=== PATIENT | male | born 1945 | race Two or more races ===

== ENCOUNTER 2021-05-11 19:47 | Inpatient (IN) | payer MEDICARE, OTHER ==
[~2021-05-11] VITALS: Ht 182.9 cm; Wt 62.1 kg
[2021-05-11 21:55] VITALS: BP 117/67
[2021-05-11] MEDS ORDERED: BLOOD SUGAR DIAGNOSTIC 1 EACH STRIP IN ONE (22:00)
[2021-05-11] MEDS ORDERED: ZOLPIDEM TARTRATE 5 MG TABLET PO PRN (22:00)
[2021-05-11] MEDS ORDERED: MAG HYDROX/AL HYDROX/SIMETH 30 ML UDC PO PRN (22:00)
[2021-05-11] MEDS ORDERED: ACETAMINOPHEN 325 MG TABLET PO PRN (22:00)
[2021-05-11] MEDS ORDERED: MAGNESIUM HYDROXIDE 30 ML UDC PO PRN (22:00)
--- NOTE | 2021-05-11 22:40 | NUR ---
RN NOTE PATIENT'S BLOOD SUGAR LEVEL IS 93 MG/DL, ORANGE JUICE OFFERED & PATIENT TOLERATED WELL. WILL CONTINUE TO MONITOR.
--- NOTE | 2021-05-11 23:30 | NUR ---
RN NOTE PATIENT IS SLEEPING COMFORTABLY, NO BEHAVIOR EPISODE NOTED UPON AND AFTER ADMISSION. CALM AND COOPERATIVE, ABLE TO FOLLOW SIMPLE DIRECTIONS DUE TO CONFUSION. BED ALARM ON. WILL CONTINUE TO MONITOR FOR SAFETY & BEHAVIOR.
[2021-05-12] MEDS ORDERED: ESCI10TA PO (00:20)
--- NOTE | 2021-05-12 00:40 | NUR ---
GPS STAFF APPRAISER NOTE PATIENT ARRIVED ON THIS UNIT AT 2135 VIA STRETCHER WITH 2 EMT'S FROM [facility] DIRECT ADMIT. PATIENT ADMITTED ON A 5150 HOLD FOR GD. PER 5150 HOLD PATIENT CAME TO THE ER STATING THAT HIS 'SISTER HAD OVERDOSED IN THE CARE." WHEN EMT RAN TO THE CAR, IT WAS FOUND THAT HE WAS HALLUCINATING. PATIENT CONTINUED TO STATED THAT HE OVERDOSED, THAT WAS FOUND NOT TRUE. PATIENT APPEARS TO BE ACTIVELY HALLUCINATING. MR. PAINTER STATED THAT HE DOES NOT TAKE HIS MEDICINES BECAUSE THE " POLICE ARE AFTER HIM." PATIENT IS NOT ABLE TO CARE FOR HIMSELF IN THIS CURRENT STATE. DUE TO THIS PATIENT WAS PLACED ON A 5150 FOR GRAVELY DISABLED. UPON FACE TO FACE ASSESSMENT PATIENT IS A & O X 1, CONFUSED, FORGETFUL, DISHEVELED, DISORIENTED, DISORGANIZED, NEEDS FREQUENT REDIRECTIONS. CALM & COOPERATIVE UPON ADMISSION, FOLLOWS SIMPLE DIRECTIONS. PATIENT HAS NO C/O PAIN. PATIENT IS DISPLAYING NO S/S OF APPARENT DISTRESS OR SOB. PATIENT BREATHING IS UNLABORED WITH EQUAL RISE AND FALL OF THE CHEST. ON ROOM AIR. PATIENT DENIES SI/HI AT THIS TIME. 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 CONTINENT, NEEDS 1 PERSON ASSISTANCE AT ALL TIMES WITH ADL CARE. PATIENT REFUSED TO SIGNS ANY PAPER WORK, WANTS TO SLEEP, FEELS VERY TIRED. POOR HISTORIAN. PATIENT ADVISED OF HOLD AND PATIENT RIGHTS BOOKLET GIVEN. PATIENT IS UNDER THE PSYCHIATRIC CARE OF DR. VELEZ AND THE MEDICAL CARE OF SAWYER ZIMMERMAN. PATIENT BELONGINGS WERE INVENTORIED AND CHECKED FOR CONTRABAND. ALL CONTRABAND REMOVED AND STORED IN PATIENT HALLWAY LOCKER. PATIENT ADVANCED DIRECTIVES PREFERENCE, IMMUNIZATIONS QUESTIONER, NECESSARY PAPERWORK COMPLETED. SKIN ASSESSMENT DONE. UNABLE TO GIVE COVID VACCINE INFORMATION DUE TO FORGETFULNESS. PATIENT ORIENTATED TO ROOM, FLOOR, AND STAFF. PATIENT EDUCATED ON THE USE OF THE CALL DIGGS. PATIENT BED SIDE RAILS ARE UP X 2 FOR SAFETY. PATIENT BED IS LOCKED, LOW, BED ALARM ON FOR SAFETY. I WILL CONTINUE TO MONITOR THIS PATIENT Q 15 MIN WITH THE HELP OF STAFF TO MAINTAIN SAFETY.
--- NOTE | 2021-05-12 07:04 | NUR ---
RN NOTE CALLED LIYA CANDELARIA AT [phone], LEFT A VOICEMAIL ABOUT PATIENT'S ADMISSION AT [facility], GPS UNIT.
[2021-05-12 07:40] LABS: ALBUMIN 3.2 g/dL (3.4-5.0); BILIRUBIN,TOTAL 0.8 mg/dL (0.2-1.0); CALCIUM, SERUM 7.7 mg/dL (8.5-10.1); CREATININE 0.7 mg/dL (0.6-1.3); POTASSIUM 3.5 mmol/L (3.5-5.1); TOTAL PROTEIN, SERUM 5.9 g/dL (6.4-8.2)
[2021-05-12 08:00] VITALS: BP 121/70
[2021-05-12] MEDS ORDERED: CARB1TAB21 PO (08:26)
[2021-05-12] MEDS ORDERED: BUSP10TA3 PO (08:26)
[2021-05-12] MEDS ORDERED: CARB1TAB40 PO (08:27)
[2021-05-12] MEDS ORDERED: QUET25TA PO (08:27)
[2021-05-12] MEDS ORDERED: OMEP20CA15 PO (08:27)
[2021-05-12] MEDS ORDERED: ENTA200T30 PO (08:27)
[2021-05-12] MEDS ORDERED: MULT-447 PO (08:27)
[2021-05-12] MEDS ORDERED: POLY17PO4 PO (08:27)
[2021-05-12] MEDS ORDERED: DOCU250C14 PO (08:27)
[2021-05-12] MEDS: Z GUARD REMEDY 2 OZ OINT TP SCH (09:28)
--- NOTE | 2021-05-12 10:17 | NUR ---
WOUND CARE CONSULT: RECEIVED WOUND CONSULT FOR SKIN ASSESSMENT. PT NOTED TO BE AMBULATORY AND CONTINENT WITH SOME DRY ABRASIONS ON LEGS, PRESENT ON ADMISSION. WILL SEE PRN.
[2021-05-12] MEDS: ENSURE ENLIVE 237 ML LIQUID (VANILLA) PO SCH ×2 (12:26→17:26)
[2021-05-12] MEDS ORDERED: POLYETHYLENE GLYCOL 3350 17 GM POWD.PACK PO PRN (12:30)
--- NOTE | 2021-05-12 12:32 | NUR ---
RAJIV Initial Discharge Plan: Patient currently resides at home alone [address], [place] [address]. Pt would want to return back home. RAJIV will work with the MD and pt to coordinate discharge.
[2021-05-12] MEDS: CARBIDOPA/LEVODOPA 25/100 MG 1 UDTAB PO SCH ×3 (12:39→21:06)
[2021-05-12] MEDS: ENTACAPONE 200 MG TABLET PO SCH ×3 (12:39→21:06)
--- NOTE | 2021-05-12 13:25 | NUR ---
SW Contact: SW contacted person to notify ([phone]) and they stated this was the wrong number.
[2021-05-12 16:00] VITALS: BP 139/84
[2021-05-12 20:00] VITALS: BP 119/75
[2021-05-12] MEDS: QUETIAPINE FUMARATE 25 MG TABLET PO SCH (21:39)
[2021-05-12] MEDS: CARBIDOPA/LEV CR 50/200 MG 1 UDTAB.SA PO SCH (22:04)
--- NOTE | 2021-05-13 06:59 | NUR ---
RN NOTE PATIENT SLEPT WELL AT NIGHT. NO BEHAVIOR EPISODE NOTED. PATIENT CALM, COOPERATIVE & REDIRECTABLE.
[2021-05-13 08:00] VITALS: BP 117/64
[2021-05-13] MEDS: PANTOPRAZOLE 40 MG TABLET.DR PO SCH (09:10)
[2021-05-13] MEDS: ENTACAPONE 200 MG TABLET PO SCH ×4 (09:11→20:34)
[2021-05-13] MEDS: MULTIVIT W/MINERALS 1 TAB TABLET PO SCH (09:11)
[2021-05-13] MEDS: CARBIDOPA/LEVODOPA 25/100 MG 1 UDTAB PO SCH ×4 (09:11→20:38)
[2021-05-13] MEDS: ENSURE ENLIVE 237 ML LIQUID (VANILLA) PO SCH ×3 (09:19→16:32)
[2021-05-13] MEDS: Z GUARD REMEDY 2 OZ OINT TP SCH (09:29)
--- NOTE | 2021-05-13 11:34 | NUR ---
[facility]: RAJIV contacted [facility] and spoke with social services counselor (Amy, ) who reported that pt was at the ER in 2018 due to experiencing hallucinations stating that someone is murdering him and was on Buspar and Seroquel. Amy VANCE shared that she was unable to find any information but just sister Mariana ([phone], ) who lives in [place]. bench worker helper reported that neighbors help pt and are involved in pt's care.
--- NOTE | 2021-05-13 11:43 | NUR ---
RAJIV Note: SW asked if pt was able to recall his neighbors name but pt was unable to remember. He did stated that neighbors help him and he goes to his doctor appointments.
--- NOTE | 2021-05-13 11:49 | NUR ---
SW Family Contact: SW contacted pt's sister Mariana ([phone], ) and left a voicemail to contact this SW to discuss discharge/treatment plan.
--- NOTE | 2021-05-13 12:06 | NUR ---
[facility] Contact: [facility] ([phone]). SW left a message for the coordinator to contact this SW in regards to placement.
--- NOTE | 2021-05-13 13:17 | NUR ---
RAJIV Family Contact: SW spoke with patient's sister Mariana ([phone]) who stated that pt lives at home and his friends/neighbors help pt. She provided patient's friend Simona's number ([phone]).
--- NOTE | 2021-05-13 13:18 | NUR ---
Friend Contact: SW contacted pt's friend Simona ([phone]) and left a voicemail to contact this SW.
--- NOTE | 2021-05-13 13:31 | NUR ---
Friend Contact: SW received a call back from pt's friend Simona ([phone]). Simona stated that he is pt's life long friend and that she takes care of pt takes him to doctor appointments. She stated she is very involved in his care and will diamond picker pt upon discharge.
--- NOTE | 2021-05-13 14:05 | NUR ---
RAJIV Coordination of Care: Patient will follow up with ([employer] Specialist) Dr. Wellington located at [address] [address] ([phone]) on May 28 at 9:30AM and will provided and monitor patients antipsychotic medications. Floral Designer Salesperson inputted for a psych consult for the primary doctor to request. More receptionist clerk scheduled this appointment and stated pt was seeing psychiatrist Dr. Abreu but has not seen him for two years.
[2021-05-13 16:00] VITALS: BP 125/73
[2021-05-13 20:00] VITALS: BP 129/80
[2021-05-13] MEDS: CARBIDOPA/LEV CR 50/200 MG 1 UDTAB.SA PO SCH (21:46)
[2021-05-13] MEDS: QUETIAPINE FUMARATE 25 MG TABLET PO SCH (21:46)
[2021-05-14] MEDS: Z GUARD REMEDY 4 OZ OINT TP PRN (04:44)
[2021-05-14 06:50] LABS: BASOPHILS % (AUTO) 0.2 % (0.0-2.0); EOSINOPHILS % (AUTO) 2.8 % (0.0-6.0); HEMATOCRIT 38 % (39-51); HEMOGLOBIN 12.7 g/dL (13.5-17.5); LYMPHOCYTES # (AUTO) 1.1 K/uL (0.8-4.8); LYMPHOCYTES % (AUTO) 24.5 % (20.0-44.0); MEAN CORPUSCULAR HGB CONC 34 g/dl (31.0-36.0); MEAN CORPUSCULAR VOLUME 94 fL (80-96); MONOCYTES # (AUTO) 0.5 K/uL (0.1-1.30); MONOCYTES % (AUTO) 9.9 % (2.0-12.0); NEUTROPHILS # (AUTO) 2.9 K/uL (1.8-8.9); NEUTROPHILS % (AUTO) 62.6 % (43.0-81.0); PLATELET COUNT (AUTO) 173 K/uL (150-450); RED BLOOD CELL COUNT(AUTO) 4.01 MIL/uL (4.5-6.0); WHITE BLOOD COUNT (AUTO) 4.6 K/uL (4.3-11.0)
[2021-05-14 08:00] VITALS: BP 114/72
[2021-05-14] MEDS: ENSURE ENLIVE 237 ML LIQUID (VANILLA) PO SCH ×3 (08:24→16:12)
[2021-05-14] MEDS: ENTACAPONE 200 MG TABLET PO SCH ×4 (08:24→21:00)
[2021-05-14] MEDS: MULTIVIT W/MINERALS 1 TAB TABLET PO SCH (08:24)
[2021-05-14] MEDS: CARBIDOPA/LEVODOPA 25/100 MG 1 UDTAB PO SCH ×4 (08:25→21:00)
[2021-05-14] MEDS: PANTOPRAZOLE 40 MG TABLET.DR PO SCH (08:25)
[2021-05-14] MEDS: Z GUARD REMEDY 2 OZ OINT TP SCH (08:26)
[2021-05-14 16:00] VITALS: BP 124/77
[2021-05-14 20:00] VITALS: BP 115/68
[2021-05-14] MEDS: CARBIDOPA/LEV CR 50/200 MG 1 UDTAB.SA PO SCH (21:21)
[2021-05-14] MEDS: QUETIAPINE FUMARATE 25 MG TABLET PO SCH (21:21)
--- NOTE | 2021-05-14 21:29 | NUR ---
GPS RN NOTE: Patient refused his bedtime medications x3 despite frequent encouragement. Education provided regarding risks and benefits.
[2021-05-15 08:00] VITALS: BP 135/90
[2021-05-15] MEDS: Z GUARD REMEDY 2 OZ OINT TP SCH (08:35)
[2021-05-15] MEDS: ENSURE ENLIVE 237 ML LIQUID (VANILLA) PO SCH ×3 (08:35→16:19)
[2021-05-15] MEDS: PANTOPRAZOLE 40 MG TABLET.DR PO SCH (08:38)
[2021-05-15] MEDS: CARBIDOPA/LEVODOPA 25/100 MG 1 UDTAB PO SCH ×4 (08:38→20:26)
[2021-05-15] MEDS: DOCUSATE SODIUM 250 MG CAPSULE PO PRN (08:38)
[2021-05-15] MEDS: MULTIVIT W/MINERALS 1 TAB TABLET PO SCH (08:38)
[2021-05-15] MEDS: ENTACAPONE 200 MG TABLET PO SCH ×4 (08:38→20:26)
--- NOTE | 2021-05-15 10:23 | NUR ---
Court Hearing: Patient's court hearing was today for 5250 and it was upheld for GD.
[2021-05-15 16:00] VITALS: BP 148/79
[2021-05-15 20:00] VITALS: BP 109/65
[2021-05-15] MEDS: QUETIAPINE FUMARATE 25 MG TABLET PO SCH (21:08)
[2021-05-15] MEDS: CARBIDOPA/LEV CR 50/200 MG 1 UDTAB.SA PO SCH (21:08)
[2021-05-16 08:00] VITALS: BP 100/62
[2021-05-16] MEDS: CARBIDOPA/LEVODOPA 25/100 MG 1 UDTAB PO SCH ×4 (08:12→21:25)
[2021-05-16] MEDS: PANTOPRAZOLE 40 MG TABLET.DR PO SCH (08:12)
[2021-05-16] MEDS: MULTIVIT W/MINERALS 1 TAB TABLET PO SCH (08:12)
[2021-05-16] MEDS: ENTACAPONE 200 MG TABLET PO SCH ×4 (08:12→21:25)
[2021-05-16] MEDS: Z GUARD REMEDY 2 OZ OINT TP SCH (08:13)
[2021-05-16] MEDS: ENSURE ENLIVE 237 ML LIQUID (VANILLA) PO SCH ×3 (08:13→16:35)
[2021-05-16 16:00] VITALS: BP 120/58
[2021-05-16 20:00] VITALS: BP 135/78
[2021-05-16 20:05] VITALS: BP 135/78
[2021-05-16] MEDS: CARBIDOPA/LEV CR 50/200 MG 1 UDTAB.SA PO SCH (22:22)
[2021-05-16] MEDS: QUETIAPINE FUMARATE 25 MG TABLET PO SCH (22:22)
[2021-05-17 08:00] VITALS: BP 118/69
[2021-05-17] MEDS: ENTACAPONE 200 MG TABLET PO SCH ×4 (08:57→21:08)
[2021-05-17] MEDS: ENSURE ENLIVE 237 ML LIQUID (VANILLA) PO SCH ×3 (08:57→17:54)
[2021-05-17] MEDS: DOCUSATE SODIUM 250 MG CAPSULE PO PRN (08:57)
[2021-05-17] MEDS: MULTIVIT W/MINERALS 1 TAB TABLET PO SCH (08:57)
[2021-05-17] MEDS: PANTOPRAZOLE 40 MG TABLET.DR PO SCH (08:57)
[2021-05-17] MEDS: CARBIDOPA/LEVODOPA 25/100 MG 1 UDTAB PO SCH ×4 (08:57→21:07)
[2021-05-17] MEDS: Z GUARD REMEDY 2 OZ OINT TP SCH (08:58)
[2021-05-17 16:00] VITALS: BP 100/61
[2021-05-17 19:43] VITALS: BP 105/65
[2021-05-17] MEDS: CARBIDOPA/LEV CR 50/200 MG 1 UDTAB.SA PO SCH (21:52)
[2021-05-17] MEDS: QUETIAPINE FUMARATE 25 MG TABLET PO SCH (21:52)
[2021-05-17] MEDS: Z GUARD REMEDY 4 OZ OINT TP PRN (23:05)
--- NOTE | 2021-05-17 23:05 | NUR ---
RN NOTES : PT. REFUSED WEEKLY SKIN REASSESSMENT AND PHOTOS TAKEN, ENCOURAGED X3 , RISKS AND BENEFITS EXPLINED ,PT. STRONGLY REFUSED , PER PT. MY SKIN IS FINE I DONT WANT ANY PHOTOS ,PT. BEHAVIOR UNCCOERTIVE ,EASILY AGITATED AT THIS TIME.
[2021-05-17] MEDS: LORAZEPAM 0.5 MG TABLET PO PRN (23:17)
--- NOTE | 2021-05-17 23:20 | NUR ---
RN NOTES: ANXIETY PATIENT IS VERY ANXIOUS & RESTLESS,PARANOID,NON REDIRECTABLE, PRN ATIVAN 1 MG PO ADMINISTERED. WILL CONTINUE TO MONITOR.
[2021-05-18 08:00] VITALS: BP 131/68
[2021-05-18] MEDS: MULTIVIT W/MINERALS 1 TAB TABLET PO SCH (08:24)
[2021-05-18] MEDS: ENTACAPONE 200 MG TABLET PO SCH ×4 (08:24→21:24)
[2021-05-18] MEDS: PANTOPRAZOLE 40 MG TABLET.DR PO SCH (08:24)
[2021-05-18] MEDS: CARBIDOPA/LEVODOPA 25/100 MG 1 UDTAB PO SCH ×4 (08:24→21:23)
[2021-05-18] MEDS: ENSURE ENLIVE 237 ML LIQUID (VANILLA) PO SCH ×3 (08:24→16:54)
[2021-05-18] MEDS: Z GUARD REMEDY 2 OZ OINT TP SCH (08:25)
--- NOTE | 2021-05-18 09:00 | NUR ---
RN NOTE- PT SLEEPING EASILY AWAKENED, CONFUSED MED COMPLIANT, NEEDS ATTENDED
[2021-05-18 16:00] VITALS: BP 125/80
[2021-05-18 20:02] VITALS: BP 108/65
[2021-05-18] MEDS: CARBIDOPA/LEV CR 50/200 MG 1 UDTAB.SA PO SCH (21:23)
[2021-05-18] MEDS: QUETIAPINE FUMARATE 25 MG TABLET PO SCH (21:24)
[2021-05-19] MEDS: LORAZEPAM 0.5 MG TABLET PO PRN (00:22)
--- NOTE | 2021-05-19 00:22 | NUR ---
Nurses Notes: Pt woke up and kind of anxious and confused, he said there's animals in his room talking, given pt his PRN meds Ativan 1.0mg, and monitor pt for more s/s of anxiety.
[2021-05-19 08:00] VITALS: BP 104/68
[2021-05-19] MEDS: PANTOPRAZOLE 40 MG TABLET.DR PO SCH (08:34)
[2021-05-19] MEDS: CARBIDOPA/LEVODOPA 25/100 MG 1 UDTAB PO SCH ×4 (08:34→21:39)
[2021-05-19] MEDS: ENSURE ENLIVE 237 ML LIQUID (VANILLA) PO SCH ×3 (08:34→16:18)
[2021-05-19] MEDS: ENTACAPONE 200 MG TABLET PO SCH ×4 (08:34→21:39)
[2021-05-19] MEDS: Z GUARD REMEDY 2 OZ OINT TP SCH (08:34)
[2021-05-19] MEDS: MULTIVIT W/MINERALS 1 TAB TABLET PO SCH (08:34)
--- NOTE | 2021-05-19 09:43 | NUR ---
Friend Contact: SW contacted pt's friend Simona ([phone]) who stated she will pick pt up on at 10AM.
--- NOTE | 2021-05-19 09:49 | NUR ---
RN NOTE- UNCHANGED, CONFUSED MED COMPLIANT, NEEDS ATTENDED
--- NOTE | 2021-05-19 11:23 | NUR ---
[facility] Contact: SW received a contact from [facility] ([phone]) who stated that they do not have beds available.
--- NOTE | 2021-05-19 11:59 | NUR ---
RAJIV Family Contact: RAJIV spoke with patient's sister Mariana ([phone]) and stated pt will be discharged 05/21. She is aware and stated she will be coming to town to help and has arranged caregivers for pt.
[2021-05-19 16:00] VITALS: BP 136/75
[2021-05-19 20:00] VITALS: BP 115/74
[2021-05-19] MEDS: QUETIAPINE FUMARATE 25 MG TABLET PO SCH (21:39)
[2021-05-19] MEDS: CARBIDOPA/LEV CR 50/200 MG 1 UDTAB.SA PO SCH (21:49)
[2021-05-20 08:00] VITALS: BP 142/92
[2021-05-20] MEDS: ENSURE ENLIVE 237 ML LIQUID (VANILLA) PO SCH ×3 (08:27→16:45)
[2021-05-20] MEDS: PANTOPRAZOLE 40 MG TABLET.DR PO SCH (08:27)
[2021-05-20] MEDS: ENTACAPONE 200 MG TABLET PO SCH ×4 (08:27→21:02)
[2021-05-20] MEDS: MULTIVIT W/MINERALS 1 TAB TABLET PO SCH (08:27)
[2021-05-20] MEDS: CARBIDOPA/LEVODOPA 25/100 MG 1 UDTAB PO SCH ×4 (08:27→21:02)
[2021-05-20] MEDS: Z GUARD REMEDY 2 OZ OINT TP SCH (08:30)
[2021-05-20 16:00] VITALS: BP 128/74
[2021-05-20] MEDS: LORAZEPAM 0.5 MG TABLET PO PRN (19:54)
--- NOTE | 2021-05-20 19:55 | NUR ---
RN NOTES: ANXIETY PATIENT IS VERY ANXIOUS & RESTLESS,PARANOID,NON REDIRECTABLE, PRN ATIVAN 1 MG PO ADMINISTERED. WILL CONTINUE TO MONITOR.
[2021-05-20 20:00] VITALS: BP 137/90
[2021-05-20] MEDS: CARBIDOPA/LEV CR 50/200 MG 1 UDTAB.SA PO SCH (22:03)
[2021-05-20] MEDS: QUETIAPINE FUMARATE 25 MG TABLET PO SCH (22:03)
[2021-05-21 08:00] VITALS: BP 101/59
[2021-05-21] MEDS: ENSURE ENLIVE 237 ML LIQUID (VANILLA) PO SCH (08:10)
[2021-05-21] MEDS: MULTIVIT W/MINERALS 1 TAB TABLET PO SCH (08:11)
[2021-05-21] MEDS: CARBIDOPA/LEVODOPA 25/100 MG 1 UDTAB PO SCH (08:11)
[2021-05-21] MEDS: PANTOPRAZOLE 40 MG TABLET.DR PO SCH (08:11)
[2021-05-21] MEDS: ENTACAPONE 200 MG TABLET PO SCH (08:11)
--- NOTE | 2021-05-21 08:21 | NUR ---
SW Discharge Note: Patient will be discharged home located at [address] [place] [address]; ([phone]). 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 Patients sister Mariana ([phone]) is aware of pts discharged. Patients friend Simona ([phone]) is aware of pts discharge. Patient denies suicidal or homicidal ideation. Patient denies visual/auditory hallucinations. Patient will follow up with ([facility]) Dr. Wellington located at [place] [address] [address] ([phone]) on May 28 at 9:30AM and will provided and monitor patients antipsychotic medications. Application Release Manager inputted for a psych consult for the primary doctor to request. Patient presents with euthymic mood and congruent affect.
[2021-05-21] MEDS: Z GUARD REMEDY 2 OZ OINT TP SCH (08:45)
--- NOTE | 2021-05-21 08:46 | NUR ---
RN-NOTES RECEIVED DISCHARGE ORDER FROM DR. VELEZ. NOTED AND CARRIED OUT.
--- NOTE | 2021-05-21 10:50 | NUR ---
RN-DISCHARGE NOTES PATIENT HAD A DISCHARGED ORDER FROM DR. VELEZ ( PSYCHIATRIST) DR. WHEELER MEDICALLY CLEARED PATIENT FOR DISCHARGE.PATIENT ALERT ORIENTED X3 AMBULATORY STEADY GAIT. PATIENT DID NOT VERBALIZE SI/HI,DENIES VISUAL/AUDITORY HALLUCINATIONS AT THE TIME OF DISCHARGE. ALL DISCHARGE MEDICATIONS WAS REVIEWED WITH THE PATIENT WITH UNDERSTANDING.INSTRUCTED PATIENT TO FOLLOW UP WITH PSYCHIATRIST AND PCP IN A WEEK OR NEEDED AND CALL 911 OR GO TO THE NEAREST EMERGENCY ROOM INCASE OF EMERGENCY. PATIENT REFUSED FULL BODY ASSESSMENT PRIOR TO DISCHARGE STATED" I DON'T HAVE ANY PROBLEM IN MY SKIN AND I DON'T WANT TO BE PICTURE AGAIN". PATIENT SIGN ALL DISCHARGE PAPERS,RX WAS GIVEN TO HIM AND ALL BELONGINGS WAS GAVE BACK TO HIM. PATIENT LEFT THE UNIT IN STABLE CONDITION A/O X3,NO ACUTE DISTRESS NOTED. MASK WAS PROVIDED TO THE PATIENT,ELECTRICAL PROSPECTOR BY SISTER MARCO A PAINTER VIA PRIVATE CAR.
== END 2021-05-21 10:05 | disposition home or self-care (01) | DRG 885 ==
LOC: GPS 21:24
PROVIDERS: ADMIT Psychiatry & Neurology Psychiatry
DX: F29 Unspecified psychosis not due to a substance or known physiological condition (principal); F41.9 Anxiety disorder, unspecified; E88.09 Other disorders of plasma-protein metabolism, not elsewhere classified; G20 Parkinson's disease; K21.9 Gastro-esophageal reflux disease without esophagitis; Z79.899 Other long term (current) drug therapy; Z73.6 Limitation of activities due to disability
CPT/HCPCS: 36415; 80053-TC; 80061-TC; 82962-TC; 84443-TC; 85025-TC; 87081-TC; 97112-TC; 97116-TC; 97530-TC